=== PATIENT | male | born 2000 | race Caucasian/White ===

== ENCOUNTER 2020-07-10 12:49 | Emergency (ER) | payer BC, SELFPAY ==
[2020-07-10 13:10] VITALS: BP 138/86; PULSE 86; RESP 19; TEMP 36.8; O2SAT 98; BMI 36.7
[2020-07-10 13:27] VITALS: BP 138/86; PULSE 86; RESP 19; TEMP 36.8; O2SAT 98
--- NOTE | 2020-07-10 13:41 | HMH.EDUTC ---
[facility] Disposition Clinical Impression: Exposure to COVID-19 virus Disposition: Home, Self-Care Condition on Discharge: Good Instructions: Preventing the Spread of Coronavirus Discharge Instructions Additional Instructions: Drink plenty of fluids. Take tylenol for pain or fever. Return if you begin to have difficulty breathing. Follow up with your regular doctor. GO TO THE ER FOR ANY WORSENING SYMPTOMS Prescriptions: Ondansetron [Zofran 4mg ODT] 4 mg PO Q8HP PRN #20 tab.rapdis PRN Reason: Nausea Transmission Status: Received by [facility] Azithromycin [Z-Tong 250mg Tab*] 250 mg PO UD DOSE PK #6 tab Transmission Status: Received by [facility] Referrals: Desiree Haley MD [Primary Care Provider] - Time of Disposition: 13:55 Medical Decision Making - Medical Records Medical records reviewed: No: I reviewed the patient's medical records. - Enrique Inquiry Pt receiving controlled substance: No Vital Signs: 07/10/20 13:10 07/10/20 13:27 Temperature 98.3 F 98.3 F Temperature Source Oral Pulse Rate 86 Pulse Rate [Right Brachial] 86 Respiratory Rate 19 19 Blood Pressure 138/86 Blood Pressure [Right Arm] 138/86 Blood Pressure Mean [Right Arm] 103 Blood Pressure Source [Right Arm] Automatic Cuff Blood Pressure Position [Right Arm] Sitting 02 Sat by Pulse Oximetry 98 Oxygen Delivery Method Room Air Orders (Tests/Meds): ORDERS Category Date Time Status Covid-19 Nasal PCR ([facility]) Routine Lab 07/10/20 13:13 Received [facility] HPI - General Stated complaint: COVID EXPOSURE Time Seen by Provider: 07/10/20 13:42 Mode of Arrival: Ambulatory Source of Information: Patient Limitations: No Limitations Description of Symptoms (Recalled from Triage Doc. by RN): REQUESTING COVID TEST D/T EXPOSURE; DENIES SYMPTOMS HEENT Symptoms (Recalled from RN notes): No Resp Symptoms (Recalled from RN notes): No Skin Symptoms (Recalled from RN notes): No MS Symptoms (Recalled from RN notes): No Functional Status (Recalled from RN notes): WNL - History of Present Illness Provider Complaint: He states that he has been exposed to covid at home. He denies any symptoms so far. - Related Data Previous Rx's Medication Instructions Recorded Azithromycin [Z-Tong 250mg Tab*] 250 mg PO UD DOSE PK #6 tab 07/10/20 Ondansetron [Zofran 4mg ODT] 4 mg PO Q8HP PRN #20 tab.rapdis 07/10/20 Allergies Allergy/AdvReac Type Severity Reaction Status Date / Time No Known Allergies Allergy Verified 07/10/20 13:23 - Worker's Comp Is this a Worker's Comp case?: No [facility] History - Hepatitis A Screen Drug use history?: No High risk sexual behaviors?: No History of sexually transmitted infection?: No Currently employed?: No Childcare worker?: No Do you have indoor plumbing?: Yes Do you have electricity?: Yes Attestation statement:: This patient has been screened for Hepatitis A risk factors. I have reviewed the patient's past medical history: Yes Other Surgeries: Yes: No Previous Surgery - Social History Smoking Status: Never smoker Alcohol Intake: never Substance Use Type: denies use Occupational Status: other Family Hx:: Non-contributory ROS Obtained: Yes All systems reviewed & no additional complaints - Constitutional Constitutional: Reports system reviewed and no additional complaints, except as docu - Eyes Eyes: Reports system reviewed and no additional complaints, except as docu - ENT Ears, Nose, Mouth, and Throat: Reports system reviewed and no additional complaints, except as docu - Cardiovascular Cardiovascular: Reports system reviewed and no additional complaints, except as docu - Respiratory Respiratory: Reports system reviewed and no additional complaints, except as docu - Gastrointestinal Gastrointestingal: Reports: system reviewed and no additional complaints, except as docu Physical Exam - General General appearance: alert, in no apparent distre
--- NOTE | 2020-07-10 19:58 | PC.NURSE ---
ATTEMPTED TO CALL PT AND GOT NO ANSWER, LEFT VOICEMAIL WITH CALL BACK NUMBER
--- NOTE | 2020-07-10 20:25 | PC.NURSE ---
PT NOTIFIED OF POSITIVE COVID RESULT
== END 2020-07-10 14:04 | disposition home or self-care (01) ==
PROVIDERS: Emergency Provider Nurse Practitioner Family; PCP Family Medicine
DX: U07.1 COVID-19 (principal)
CPT/HCPCS: 99202; G0463; U0003

== ENCOUNTER 2020-07-21 10:05 | Emergency (ER) | payer BC, SELFPAY ==
[2020-07-21 10:20] VITALS: BP 131/98; PULSE 63; RESP 19; TEMP 37; O2SAT 98; BMI 26.4
--- NOTE | 2020-07-21 10:43 | HMH.EDUTC ---
[facility] [place] Disposition Clinical Impression: Encounter for laboratory testing for COVID-19 virus Disposition: Home, Self-Care Condition on Discharge: Good Instructions: DI for COVID-19 (Suspected or Confirmed ), Coronavirus Disease 2019, Preventing the Spread of Coronavirus Discharge Instructions Additional Instructions: *Monitor Temp, Over the counter Motrin or Tylenol as directed/as needed Tylenol every 4 hours and Motrin every 6 hours (as long as your family doctor has told you that you can take it) for fever or pain. and straight to ER if unable to lower temp less than 101.0 after medication given Follow up IMMEDIATELY for new or worsening symptoms or no Noticeable improvement over the next 48-72 hours. 911 for difficulty breathing or swallowing You were tested for today for COVID19 your test result should be back in the next 24-48 hours, you may call to the [facility] to see if your test results are back in the next 48 hours [phone] [facility] hours are 9am-9pm You was given a handout with instructions for Self Quarantine and Self isolation for while you wait on test results and what to do if they are positive If you are positive the Health Dept will be contacting you also Referrals: Desiree Haley MD [Primary Care Provider] - As needed Forms: Work/School Release Time of Disposition: 10:44 Medical Decision Making - Enrique Inquiry Pt receiving controlled substance: No Enrique was queried for this patient: No Vital Signs: 07/21/20 10:20 Temperature 98.6 F Temperature Source Oral Pulse Rate [Right Brachial] 63 Respiratory Rate 19 Blood Pressure [Right Arm] 131/98 H Blood Pressure Mean [Right Arm] 109 Blood Pressure Source [Right Arm] Automatic Cuff Blood Pressure Position [Right Arm] Sitting 02 Sat by Pulse Oximetry 98 Oxygen Delivery Method Room Air Orders (Tests/Meds): ORDERS Category Date Time Status Covid-19 Nasal PCR Sendout [facility] Stat Lab 07/21/20 10:[address] [facility] HPI - General Stated complaint: covid test Time Seen by Provider: 07/21/20 10:43 Mode of Arrival: Ambulatory Source of Information: Patient Limitations: No Limitations Description of Symptoms (Recalled from Triage Doc. by RN): PATIENT TEST POSITIVE FOR COVID 2 WEEKS AGO, WANTING RE-TESTED HEENT Symptoms (Recalled from RN notes): No Resp Symptoms (Recalled from RN notes): No Skin Symptoms (Recalled from RN notes): No MS Symptoms (Recalled from RN notes): No Functional Status (Recalled from RN notes): WNL - History of Present Illness Provider Complaint: Patient tested positiver for COVID about 2 weeks ago and lives with his mother States that her work wanted him to get retested to see if he is still positive before she is allowed to return to work - Related Data Previous Rx's Medication Instructions Recorded Azithromycin [Z-Tong 250mg Tab*] 250 mg PO UD DOSE PK #6 tab 07/10/20 Ondansetron [Zofran 4mg ODT] 4 mg PO Q8HP PRN #20 tab.rapdis 07/10/20 Allergies Allergy/AdvReac Type Severity Reaction Status Date / Time No Known Allergies Allergy Verified 07/10/20 13:23 - Worker's Comp Is this a Worker's Comp case?: No [facility] History - Hepatitis A Screen Drug use history?: No High risk sexual behaviors?: No History of sexually transmitted infection?: No Currently employed?: No Childcare worker?: No Do you have indoor plumbing?: Yes Do you have electricity?: Yes Attestation statement:: This patient has been screened for Hepatitis A risk factors. I have reviewed the patient's past medical history: Yes Other Surgeries: Yes: No Previous Surgery - Social History Smoking Status: Never smoker Alcohol Intake: never Substance Use Type: denies use Occupational Status: other Family Hx:: Non-contributory ROS Obtained: Yes All systems reviewed & no additional complaints, Yes Systems reviewed as appropriate & no additional complaints - Constitutional Constitutional: Reports system reviewed and no additional complaints, except
[2020-07-21 11:00] VITALS: BP 131/98; PULSE 63; RESP 19; TEMP 37; O2SAT 98
[2020-07-22 10:08] LABS: Covid-19 Nasal PCR Sendout P&C POSITIVE
--- NOTE | 2020-07-22 11:05 | PC.NURSE ---
attempted to contact for positive covid result voicemail left
--- NOTE | 2020-07-22 11:28 | PC.NURSE ---
notified of positive covid result
== END 2020-07-21 11:05 | disposition home or self-care (01) ==
PROVIDERS: Emergency Provider Nurse Practitioner; PCP Family Medicine
DX: U07.1 COVID-19 (principal)
CPT/HCPCS: 99202; G0463; U0004

== ENCOUNTER 2021-06-14 06:47 | Emergency (ER) | payer OTHER, SELFPAY ==
[2021-06-14 06:49] VITALS: BP 120/65; PULSE 80; RESP 16; TEMP 36.9; O2SAT 98; BMI 26.3
--- NOTE | 2021-06-14 07:07 | ECG_ITS ---
APPROVED REPORT Exam: Resting ECG HR:76 bpm ECG Measurements Heart Rate 76 AXES SC 172 P 43 QRSd 72 QRS 43 QT 364 T 56 QTc 409 Conclusion Normal sinus rhythm Nonspecific ST abnormality Abnormal ECG Electronically signed by : Jemal Vargas MD 06/14/2021 20:17:04
[2021-06-14 07:40] VITALS: BP 122/74; PULSE 80; RESP 16; O2SAT 98
--- NOTE | 2021-06-14 07:50 | HMH.EDGENADL ---
ED Disposition Clinical Impression: Acute epigastric pain Disposition: Home, Self-Care Condition on Discharge: Good Instructions: DI for Acute Pain -- Adult Additional Instructions: see pcp for follow up and use meds Prescriptions: Pantoprazole Sodium [Protonix 40mg tablet] 40 mg PO DAILY #30 tab Transmission Status: Pending to [facility] Referrals: Desiree Haley MD [Primary Care Provider] - - Critical Care Critical Care Time: No Attestation: On 06/14/21, the high probability of a clinically significant, sudden or life threatening deterioration of the following system(s) required my full and direct attention, intervention and personal management. The time I documented below is in addition to time spent performing reported procedures but includes the following listed in this critical care notation. Medical Decision Making - Medical Records Medical records reviewed: Yes: I reviewed the patient's medical records. - Enrique Inquiry Pt receiving controlled substance: No Vital Signs: 06/14/21 06:49 Temperature 98.5 F Temperature Source Oral Pulse Rate [Radial] 80 Respiratory Rate 16 Blood Pressure [Right Arm] 120/65 Blood Pressure Mean [Right Arm] 83 Blood Pressure Position [Right Arm] Sitting 02 Sat by Pulse Oximetry 98 Oxygen Delivery Method Room Air - Lab Data Lab results reviewed: Yes: I reviewed the patient's lab results. Lab Results 06/14/21 07:54: WBC 7.6, RBC 4.74, Hgb 14.6, Hct 44.9, MCV 94.7 H, MCH 30.8, MCHC 32.5, RDW 13.7, Plt Count 196, MPV 9.3, Neut % (Auto) 65.5, Lymph % (Auto) 27.6, [place] % (Auto) 4.0, Eos % (Auto) 2.5, Baso % (Auto) 0.5, Neut # (Auto) 5.0, Lymph # (Auto) 2.1, [place] # (Auto) 0.3, Eos # (Auto) 0.2, Baso # (Auto) 0.0 06/14/21 07:54: Sodium 140, Potassium 4.0, Chloride 105, Carbon Dioxide 28, Anion Gap 11.0, BUN 7 L, Creatinine 0.60 L, Estimated Creat Clear 252, Estimated GFR 167, Est GFR ( Amer) 202, Glucose 87, Calcium 9.0, Total Bilirubin 1.2, AST 28, ALT 27, Alkaline Phosphatase 57, Total Protein 6.7, Albumin 4.1, Globulin 2.6, Albumin/Globulin Ratio 1.6, Amylase 68, Lipase 52 Result diagrams: 06/14/21 07:54 06/14/21 07:54 Orders (Tests/Meds): ED MEDICATIONS Generic Name Dose Route Start Last Admin Trade Name Freq PRN Reason Stop Dose Admin Sodium Chloride 1,000 mls @ 999 mls/hr 06/14/21 07:45 06/14/21 07:58 Sod Chlor 0.9% 1000ml Bag IV 06/14/21 08:45 999 mls/hr .Q1H1M JASON Administration Sodium Chloride 8 ml 06/14/21 07:40 06/14/21 07:58 Sodium Chloride 0.9% 10ml Vial IV 07/14/21 07:39 8 ml NEEDED PRN Administration dilute pepcid Discontinued Medications Generic Name Dose Route Start Last Admin Trade Name Freq PRN Reason Stop Dose Admin Belladonna Alkaloids 60 ml 06/14/21 07:36 06/14/21 07:41 Gi Cocktail 60ml Udc PO 06/14/21 07:37 Not Given ONCE ONE Famotidine 20 mg 06/14/21 07:40 06/14/21 07:58 Famotidine 20mg/2ml Vial IV 06/14/21 07:41 20 mg ONCE ONE Administration Metoclopramide HCl 10 mg 06/14/21 07:40 06/14/21 07:58 Metoclopramide Hcl 10mg/2ml Vial IVP 06/14/21 07:41 10 mg ONCE ONE Administration ORDERS Category Date Time Status Amylase Stat Lab 06/14/21 07:54 Results Comprehensive Metabolic Panel Stat Lab 06/14/21 07:54 Results Lipase Stat Lab 06/14/21 07:54 Results Troponin I Q3H Lab 06/14/21 10:45 Ordered Troponin I Q3H Lab 06/14/21 13:45 Ordered Troponin I Stat Lab 06/14/21 07:54 Results Urinalysis and Microscopic Stat Lab 06/14/21 07:38 Ordered - ECG Data Tracing #1 Normal Sinus Rhythm: Yes Ischemic changes: non-specific ST-T wave changes Medical Decision Narrative: has gerd type sx vs gallbladder - will d/c to see pcp for follow up and testing General Adult HPI - General Chief complaint: PAIN Stated complaint: Took double dose Benadryl;pain in upper abdomen Time Seen by Provider: 06/14/21 07:25 Mode of Arrival: Ambulat
[2021-06-14 08:03] LABS: Basophils % 0.5 % (0.1-2.0); Eosinophils # 0.2 K/mm3 (0.0-0.4); Eosinophils % 2.5 % (0.1-12.0); Hematocrit 44.9 % (42.0-52.0); Hemoglobin 14.6 g/dL (14.1-18.0); Lymphocytes # 2.1 K/mm3 (0.7-4.5); Lymphocytes % 27.6 % (10-50); Mean Corpuscular HGB Conc 32.5 g/dL (31.8-35.4); Mean Corpuscular Hemoglobin 30.8 pg (27.0-31.2); Mean Corpuscular Volume 94.7 fl (80-94); Mean Platelet Volume 9.3 fl (7.4-10.4); Monocytes # 0.3 K/mm3 (0.1-1.0); Neutrophils % 65.5 % (37.0-80.0); Platelet Count 196 K/mm3 (142-424); Red Blood Count 4.74 M/mm3 (4.60-6.20); Red Cell Distribution Width 13.7 % (11.5-17.5); White Blood Count 7.6 K/mm3 (4.8-10.8)
[2021-06-14 08:06] LABS: Chloride 105 mmol/L (98-107); Sodium 140 mmol/L (136-145)
[2021-06-14 08:08] LABS: Amylase 68 U/L (30-110)
[2021-06-14 08:09] LABS: Alanine Aminotransferase 27 U/L (12-78); Albumin Level 4.1 g/dl (3.5-5.0); Albumin/Globulin Ratio 1.6 (1.1-1.8); Alkaline Phosphatase 57 U/L (38-126); Aspartate Amino Transferase 28 U/L (17-59); Bilirubin,Total 1.2 mg/dl (0.2-1.3); Blood Urea Nitrogen 7 mg/dl (9-20); Carbon Dioxide 28 mmol/L (22.0-30.0); Creatinine Clearance Estimated 252 mL/min (50-200); Estimated Glomerular Filt Rate 167 ml/min (>60); GFR (African American) 202 ML/MIN (>60); Globulin 2.6 g/dL (1.3-3.2); Glucose 87 mg/dl (74-100); Lipase 52 U/L (23-300); Total Protein,Serum 6.7 g/dl (6.3-8.2)
[2021-06-14 08:26] LABS: Troponin I < 0.01 ng/ml (0.00-0.034)
[2021-06-14 08:32] LABS: Microscopic, Urine URINE MICROSCOPIC (MICROSCOPIC)
[2021-06-14 08:35] LABS: Appearance,Urine CLEAR (Clear); Bilirubin,Urine Negative (Negative); Blood, Urine Negative (Negative); Color,Urine YELLOW (Yellow); Glucose,Urine (UA) Negative (Negative); Ketones,Urine Negative (Negative); Leukocyte Esterase,Urine Negative (Negative); Nitrate,Urine Negative (Negative); Protein,Urine Negative (Negative); Specific Gravity, Urine <= 1.005 (1.005-1.030); Urobilinogen,Urine 0.2 EU/dl (0.2)
[2021-06-14 08:44] VITALS: BP 122/74; PULSE 80; RESP 98; TEMP 36.9
[2021-06-14 08:47] LABS: Squamous Epithelial Cell,Urine Occasional #/hpf (0-5)
== END 2021-06-14 08:45 | disposition home or self-care (01) ==
PROVIDERS: Emergency Provider Emergency Medicine; PCP Family Medicine
DX: R10.13 Epigastric pain (principal); R11.0 Nausea
CPT/HCPCS: 80053; 81001; 82150; 83690; 84484; 85025; 93005; 96365; 96375; 99283

== ENCOUNTER 2021-08-11 16:52 | Emergency (ER) | payer OTHER, SELFPAY ==
[2021-08-11 16:53] VITALS: BP 131/79; PULSE 95; RESP 16; TEMP 37.2; O2SAT 98; BMI 27.6
--- NOTE | 2021-08-11 17:40 | HMH.EDGENADL ---
ED Disposition Clinical Impression: Head pain Qualifiers: Headache type: unspecified Headache chronicity pattern: acute headache Intractability: not intractable Qualified Code(s): R51.9 - Headache, unspecified Disposition: Home, Self-Care Condition on Discharge: Good Instructions: DI for Headache Additional Instructions: follow up pcp, return for worse Referrals: Desiree Haley MD [Primary Care Provider] - - Critical Care Critical Care Time: No Attestation: On , the high probability of a clinically significant, sudden or life threatening deterioration of the following system(s) required my full and direct attention, intervention and personal management. The time I documented below is in addition to time spent performing reported procedures but includes the following listed in this critical care notation. Medical Decision Making - Medical Records Medical records reviewed: Yes: I reviewed the patient's medical records. - Enrique Inquiry Pt receiving controlled substance: No Vital Signs: 08/11/21 16:53 Temperature 98.9 F Temperature Source Oral Pulse Rate [Radial] 95 H Respiratory Rate 16 Blood Pressure [Right Arm] 131/79 Blood Pressure Mean [Right Arm] 96 Blood Pressure Position [Right Arm] Sitting 02 Sat by Pulse Oximetry 98 Oxygen Delivery Method Room Air General Adult HPI - General Chief complaint: Headache Stated complaint: sudden headache, pain in center of head Time Seen by Provider: 08/11/21 17:40 Mode of Arrival: Ambulatory Limitations: No Limitations Description of Symptoms (Recalled from ER Triage Doc. 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 pt states he had a sudden onset of pain top of head lasting only a few secs then would resolve and come back seconds later states this happened maybe 5 times pt denies any fever, chills, nausea, vomiting, photophobia, phonophobia. pt states looked up symptoms on the internet and it scared me . - History of Present Illness HPI narrative: sudden onset sharp scalp/head pain several hours ago lasting brief seconds, resolved now, no assoc symptoms, no meds taken Location: head Radiation: non-radiation Severity: moderate Quality: sharp Consistency: now resolved Relieving factors: none Exacerbating factors: none Associated symptoms: denies other symptoms - Related Data Previous Rx's Medication Instructions Recorded Azithromycin [Z-Tong 250mg Tab*] 250 mg PO UD DOSE PK #6 tab 07/10/20 Pantoprazole Sodium [Protonix 40mg 40 mg PO DAILY #30 tab 06/14/21 tablet] Allergies Allergy/AdvReac Type Severity Reaction Status Date / Time No Known Allergies Allergy Verified 07/10/20 13:23 [facility] History - Hepatitis A Screen Drug use history?: No High risk sexual behaviors?: No History of sexually transmitted infection?: No Currently employed?: No Childcare worker?: No Do you have indoor plumbing?: Yes Do you have electricity?: Yes Attestation statement:: This patient has been screened for Hepatitis A risk factors. Other Surgeries: Yes: No Previous Surgery - Social History Smoking Status: Never smoker Alcohol Intake: never Substance Use Type: denies use Occupational Status: other Family Hx:: Non-contributory ROS Obtained: Yes All systems reviewed & no additional complaints Physical Exam - General General appearance: alert, in no apparent distress - Head Head exam: atraumatic, normocephalic, normal inspection - Eye Eye exam: Present: normal appearance, PERRL, EOMI - ENT ENT exam: Present: TM's normal bilaterally - Respiratory Respiratory exam: Absent: respiratory distress, wheezes, stridor - Cardiovascular Cardiovascular exam: Present: regular rate, normal rhythm. Absent: tachycardia - Neurological Exam Neurological exam: Present: alert, oriented X3, CN II-XII intact, normal gait - Psychiatric Psychiatric exam: Present: normal affect, normal mood. Absent: depressed - Skin Skin
[2021-08-11 18:04] VITALS: BP 131/79; PULSE 95; RESP 16; TEMP 37.2; O2SAT 98
== END 2021-08-11 18:04 | disposition home or self-care (01) ==
PROVIDERS: Emergency Provider Emergency Medicine; PCP Family Medicine
DX: R51.9 Headache, unspecified (principal); Z86.16 Personal history of COVID-19
CPT/HCPCS: 99281

== ENCOUNTER 2021-09-15 00:07 | Emergency (ER) | payer OTHER, SELFPAY ==
[2021-09-15] VITALS (9 sets, daily range): BP systolic 106–126; BP diastolic 65–77; PULSE 56–75; RESP 16–18; TEMP 36.6–37.1; O2SAT 98–100; BMI 27.7
--- NOTE | 2021-09-15 00:06 | ECG_ITS ---
APPROVED REPORT Exam: Resting ECG HR:66 bpm ECG Measurements Heart Rate 66 AXES MD 193 P 48 QRSd 84 QRS 70 QT 363 T 61 QTc 376 Conclusion SINUS RHYTHM EARLY REPOLARIZATION [ST ELEVATION WITH NORMALLY INFLECTED T-WAVE] BORDERLINE ECG UNCONFIRMED REPORT Electronically signed by : Jemal Vargas MD 09/15/2021 18:02:43
--- NOTE | 2021-09-15 00:12 | XR_ITS ---
PROCEDURE INFORMATION: Exam: XR Chest Exam date and time: 09/15/2021 12:12 AM Age: 21 years old Clinical indication: Injury or trauma; Fall; Blunt trauma (contusions or hematomas); Additional info: Syncope TECHNIQUE: Imaging protocol: XR of the chest. Views: 2 views. COMPARISON: No relevant prior studies available. FINDINGS: Lungs: Unremarkable. No consolidation. Pleural spaces: Unremarkable. No pleural effusion. No pneumothorax. Heart/Mediastinum: Unremarkable. No cardiomegaly. Bones/joints: Unremarkable. IMPRESSION: No acute findings.
[2021-09-15 00:20] LABS: Basophils # 0.3 K/mm3 (0-0.2); Basophils % 4.2 % (0.1-2.0); Eosinophils # 0.1 K/mm3 (0.0-0.4); Eosinophils % 1.7 % (0.1-12.0); Hemoglobin 15.8 g/dL (14.1-18.0); Lymphocytes # 4.1 K/mm3 (0.7-4.5); Lymphocytes % 56.7 % (10-50); Mean Corpuscular HGB Conc 32.3 g/dL (31.8-35.4); Mean Corpuscular Hemoglobin 30.8 pg (27.0-31.2); Mean Corpuscular Volume 95.5 fl (80-94); Mean Platelet Volume 9.2 fl (7.4-10.4); Monocytes # 0.4 K/mm3 (0.1-1.0); Monocytes % 5.2 % (1.7-9.3); Neutrophils # 2.6 K/mm3 (1.8-7.8); Neutrophils % 36.4 % (37.0-80.0); Platelet Count 235 K/mm3 (142-424); Red Blood Count 5.14 M/mm3 (4.60-6.20); White Blood Count 7.2 K/mm3 (4.8-10.8)
[2021-09-15 00:29] LABS: MANUAL DIFFERENTIAL MANUAL DIFFERENTIAL (MANUAL DIFF)
--- NOTE | 2021-09-15 00:41 | HMH.EDCP ---
ED Disposition Clinical Impression: Chest pain Qualifiers: Chest pain type: unspecified Qualified Code(s): R07.9 - Chest pain, unspecified Disposition: Home, Self-Care Condition on Discharge: Good Instructions: DI for Atypical Chest Pain Additional Instructions: fluids and see pcp for follow up Referrals: Desiree Haley MD [Primary Care Provider] - - Critical Care Critical Care Time: No Attestation: On 09/15/21, the high probability of a clinically significant, sudden or life threatening deterioration of the following system(s) required my full and direct attention, intervention and personal management. The time I documented below is in addition to time spent performing reported procedures but includes the following listed in this critical care notation. Medical Decision Making - Medical Records Medical records reviewed: Yes: I reviewed the patient's medical records. - Enrique Inquiry Pt receiving controlled substance: No Vital Signs: 09/15/21 00:08 09/15/21 00:13 09/15/21 00:14 Temperature 97.8 F Temperature Source Oral Pulse Rate 69 62 Pulse Rate [Orthostatic Lying] Pulse Rate [Orthostatic Sitting] Pulse Rate [Orthostatic Standing] Pulse Rate [Right] 68 Respiratory Rate 18 Blood Pressure 121/77 126/73 Blood Pressure [Orthostatic Lying] Blood Pressure [Orthostatic Sitting] Blood Pressure [Orthostatic Standing] Blood Pressure [Right Arm] 106/65 L Blood Pressure Mean 88 84 Blood Pressure Mean [Right Arm] 78 02 Sat by Pulse Oximetry 98 98 98 09/15/21 00:15 09/15/21 00:19 09/15/21 00:30 Temperature Temperature Source Pulse Rate 61 71 Pulse Rate [Orthostatic Lying] 66 Pulse Rate [Orthostatic Sitting] 60 Pulse Rate [Orthostatic Standing] 71 Pulse Rate [Right] Respiratory Rate Blood Pressure 118/71 125/77 Blood Pressure [Orthostatic Lying] 121/77 Blood Pressure [Orthostatic Sitting] 126/73 Blood Pressure [Orthostatic Standing] 118/71 Blood Pressure [Right Arm] Blood Pressure Mean 83 85 Blood Pressure Mean [Right Arm] 02 Sat by Pulse Oximetry 99 99 09/15/21 01:30 09/15/21 02:00 Temperature Temperature Source Pulse Rate 56 L 75 Pulse Rate [Orthostatic Lying] Pulse Rate [Orthostatic Sitting] Pulse Rate [Orthostatic Standing] Pulse Rate [Right] Respiratory Rate Blood Pressure 118/67 117/75 Blood Pressure [Orthostatic Lying] Blood Pressure [Orthostatic Sitting] Blood Pressure [Orthostatic Standing] Blood Pressure [Right Arm] Blood Pressure Mean 75 85 Blood Pressure Mean [Right Arm] 02 Sat by Pulse Oximetry 99 98 - Lab Data Lab results reviewed: Yes: I reviewed the patient's lab results. Lab Results 09/15/21 00:10: WBC 7.2, RBC 5.14, Hgb 15.8, Hct 49.0, MCV 95.5 H, MCH 30.8, MCHC 32.3, RDW 13.0, Plt Count 235, MPV 9.2, Neut % (Auto) 36.4 L, Lymph % (Auto) 56.7 H, [place] % (Auto) 5.2, Eos % (Auto) 1.7, Baso % (Auto) 4.2 H, Neut # (Auto) 2.6, Lymph # (Auto) 4.1, [place] # (Auto) 0.4, Eos # (Auto) 0.1, Baso # (Auto) 0.3 H, Total Counted 100, Neutrophils % (Manual) 27 L, Lymphocytes % (Manual) 68 H, Monocytes % (Manual) 1 L, Eosinophils % (Manual) 4 H, Platelet Estimate Normal, RBC Morphology Normal, ESR 2 09/15/21 00:10: Sodium 138, Potassium 3.7, Chloride 104, Carbon Dioxide 26, Anion Gap 11.7, BUN 12, Creatinine 0.70, Estimated Creat Clear 227, Estimated GFR 140, Est GFR ( Amer) 169, Glucose 123 H, Calcium 8.3 L, Total Bilirubin 1.4 H, AST 35, ALT 42, Alkaline Phosphatase 58, Troponin I < 0.01, C-Reactive Protein 3.9, Total Protein 7.1, Albumin 4.4, Globulin 2.7, Albumin/Globulin Ratio 1.6, Procalcitonin < 0.030 09/15/21 02:19: Urine Color Yellow, Urine Appearance Clear, Urine pH 6.0, Ur Specific Simpson 1.010, Urine Protein Negative, Urine Glucose (UA) Negative, Urine Ketones Negative, Urine Blood Negative, Urine Nitrate Negative, Urine Bilirubin Negative, Urine Urobilinogen 0.2, Ur Leukocyte Esterase Negativ
--- NOTE | 2021-09-15 00:42 | CT_ITS ---
PROCEDURE INFORMATION: Exam: CTA Chest With Contrast Exam date and time: 09/15/2021 12:42 AM Age: 21 years old Clinical indication: Injury or trauma; Fall; Additional info: Chest pain, syncopal episode TECHNIQUE: Imaging protocol: Computed tomographic angiography of the chest with contrast. 3D rendering (Not supervised by radiologist): MIP and/or 3D reconstructed images were created by the technologist. Radiation optimization: All CT scans at this facility use at least one of these dose optimization techniques: automated exposure control; mA and/or kV adjustment per patient size (includes targeted exams where dose is matched to clinical indication); or iterative reconstruction. Contrast material: ISOVUE; Contrast volume: 70 ml; Contrast route: INTRAVENOUS (IV); COMPARISON: CR XR CHEST 2V 09/15/2021 12:17 AM FINDINGS: Pulmonary arteries: Normal. No pulmonary emboli. Aorta: Unremarkable. No aortic aneurysm. No aortic dissection. Lungs: Unremarkable. No consolidation. No masses. Pleural spaces: Unremarkable. No pneumothorax. No pleural effusion. Heart: Unremarkable. No cardiomegaly. No pericardial effusion. Lymph nodes: Unremarkable. No enlarged lymph nodes. Bones/joints: Unremarkable. No acute fracture. Soft tissues: Unremarkable. IMPRESSION: No acute findings.
[2021-09-15 01:02] LABS: Erythrocyte Sedimentation Rate 2 mm/hr (0-15)
[2021-09-15 01:03] LABS: Chloride 104 mmol/L (98-107)
[2021-09-15 01:04] LABS: Potassium 3.7 mmoL/L (3.5-5.1); Sodium 138 mmol/L (136-145)
[2021-09-15 01:06] LABS: Alanine Aminotransferase 42 U/L (12-78); Alkaline Phosphatase 58 U/L (38-126); Aspartate Amino Transferase 35 U/L (17-59); Bilirubin,Total 1.4 mg/dl (0.2-1.3); Blood Urea Nitrogen 12 mg/dl (9-20); Creatinine Clearance Estimated 227 mL/min (50-200); Estimated Glomerular Filt Rate 140 ml/min (>60); GFR (African American) 169 ML/MIN (>60)
[2021-09-15 01:07] LABS: Albumin Level 4.4 g/dl (3.5-5.0); Albumin/Globulin Ratio 1.6 (1.1-1.8); Anion Gap 11.7 mEq/L (5-15); Calcium 8.3 mg/dl (8.4-10.2); Carbon Dioxide 26 mmol/L (22.0-30.0); Globulin 2.7 g/dL (1.3-3.2); Glucose 123 mg/dl (74-100); Total Protein,Serum 7.1 g/dl (6.3-8.2)
[2021-09-15 01:14] LABS: Eosinophils % 4 % (0-3); Lymphocytes % 68 % (10-50); Monocytes % 1 % (2-9); Neutrophils % 27 % (42-76); Platelet Estimate Normal; RBC Morphology Normal; Total Cells Counted 100
[2021-09-15 01:52] LABS: C-Reactive Protein 3.9 mg/L (0-4)
[2021-09-15 02:07] LABS: Procalcitonin < 0.030 ng/mL (0.0-2.0); Troponin I < 0.01 ng/ml (0.00-0.034)
--- NOTE | 2021-09-15 02:21 | PC.NURSE ---
PT DENIES PAIN/DISCOMFORT. PT UPDATED WITH EXPECTED WAIT TIMES. WCM.
[2021-09-15 02:23] LABS: Appearance,Urine CLEAR (Clear); Bilirubin,Urine Negative (Negative); Blood, Urine Negative (Negative); Color,Urine YELLOW (Yellow); Glucose,Urine (UA) Negative (Negative); Ketones,Urine Negative (Negative); Leukocyte Esterase,Urine Negative (Negative); Microscopic, Urine URINE MICROSCOPIC (MICROSCOPIC); Nitrate,Urine Negative (Negative); Protein,Urine Negative (Negative); Urobilinogen,Urine 0.2 EU/dl (0.2)
[2021-09-15 02:36] LABS: Bacteria,Urine Trace /lpf; Barbiturates Screen,Urine Negative ng/ml (<200)
[2021-09-15 02:37] LABS: Amphetamine/Metha Screen,Urine Negative ng/ml (<1000)
[2021-09-15 02:38] LABS: Cocaine Screen,Urine Negative ng/ml (<300); Methadone Screen,Urine Negative ng/ml (<300)
[2021-09-15 02:39] LABS: Cannabinoid Screen,Urine Negative ng/ml (<50)
[2021-09-15 02:40] LABS: Opiate Screen,Urine Negative ng/ml (<300)
[2021-09-15 02:41] LABS: Phencyclidine Screen,Urine Negative ng/ml (<25)
[2021-09-15 02:56] LABS: Benzodiazepines Screen,Urine Negative ng/ml (<200)
== END 2021-09-15 03:09 | disposition home or self-care (01) ==
PROVIDERS: Emergency Provider Emergency Medicine; PCP Family Medicine
DX: R55 Syncope and collapse (principal); R07.9 Chest pain, unspecified
CPT/HCPCS: 71046; 71275; 80053; 80305; 81001; 84145; 84484; 85007; 85025; 85651; 86140; 93005; 96365; 96375; 99284; Q9967

== ENCOUNTER → 2021-09-24 10:42 | Outpatient (CLI) | payer OTHER, SELFPAY ==
--- NOTE | 2021-09-24 10:44 | CA_ITS ---
APPROVED REPORT EXAM: Comprehensive 2D, Doppler, and color-flow Echocardiogram Promotions Assistant Sales Marketing: Flores Becker RT(R) Ht: 6 ft 2 in Wt: 212lbs BSA: 2.23 BP: 126/79 mmHg Indications: cp, syncope 2D Dimensions LVOT 2.21 cm (M/F) 1.5-2.5 LA Volume 25.90 mL LA Volume Index 11.66 mL/m2 (M/F) 16-34 M-Mode Dimensions RVDd 2.61 cm (0.9-2.6) LA Diam 3.32 cm (1.9-4.0) LVDd 5.56 cm (3.5-5.7) Ao Diam 2.55 cm (2.0-3.7) LVDs 4.42 cm (3.5-5.7) IVSd 1.06 cm (0.6-1.1) PWd 0.83 cm (0.6-1.1) EF (Teich) 41.40% FS 20.50% EDV (Teich) 151.20 mL ESV (Teich) 88.60 mL LV Diastology E Decel Time 200.00 (160-240 msec) E/A Ratio 1.2 MED E' 11.80 (< 7 cm/sec) E'/MED E' Ratio 6.08 (>14) LAT E' 19.20 (<10 cm/sec) E/LAT E' Ratio 3.73 (>14) Mitral Valve MV E Max Ray. 72.00 (40-130 cm/s) MV A Velocity 58.00 (40-130 cm/s) E/A Ratio 1.23 MV Decel. Time 200.00 (160-240 ms) MV PHT 59.00 ms Tricuspid Valve TR P. Velocity 229.00 cm/s RAP Estimate 10.00 mmHg RVSP 31.00 mmHg Left Ventricle Left atrium normal size, left ventricle is normal size, there is no concentric left ventricular hypertrophy, visually estimated ejection fraction 55% with no regional wall motion abnormality, diastolic parameters are within normal range. Right Ventricle Right atrium and right ventricle are normal size and contractility. Aortic Valve Aortic valve is grossly normal, there is no aortic stenosis or aortic insufficiency. Mitral Valve Mitral valve grossly normal, there is trace mitral regurgitation. Tricuspid Valve Tricuspid valve grossly normal, there is no significant tricuspid regurgitation seen. Pulmonic Valve Pulmonic valve is poorly visualized. Great Vessels Aortic root is normal size. Inferior vena cava is normal size, respiratory variation is not observed in this study. Pericardium No significant pericardial effusion noted. Conclusion 1. Normal left ventricular size, preserved left ventricular systolic function, visually estimated ejection fraction 55% with no regional wall motion abnormality. 2. Trace mitral regurgitation. 3. No significant pericardial effusion noted. Electronically signed by : Skip Patton MD 09/24/2021 16:06:17
--- NOTE | 2021-09-24 10:44 | CA_ITS ---
APPROVED REPORT Exam: Exercise Treadmill Technologist: Nidia Brown, Ht: 6 ft 0 in Wt: 212 lbs BSA: 2.18 m2 HR: 82 bpm BP: 132/75 mmHg Rhythm: NSR, J-POINT ELEVATION INFERIORLY 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 Medications: DiPHENHYDRAMINE,,,,, Allergies: No known drug allergies Cardiac Risk Factors: FHX of CAD Stress Test Details Test: Bruno, Exercise stress testing was performed using a modified Bruno protocol. HR Resting HR: 89 bpm Max Heart Rate (APMHR): 197 bpm Max HR Achieved: 191 bpm Target HR (85% APMHR): 167 bpm % of APMHR: 97 Recovery HR: 120 bpm BP Resting BP: 132/75 mmHg Max BP: 168/84 mmHg Recovery BP: 168.0/84.0 mmHg ECG Resting ECG: NSR, J-POINT ELEVATION INFERIORLY Clinical Reason for Termination: Leg Pain Exercise duration: 09:00 min Highest Stage Achieved: Exercise capacity: 10.1 METs Stress ECG Conclusion NO CP. 2 PVC'S NOTED IN STAGE I. <1.[address] SEGMENT CHANGES. Normal exercise treadmill stress test Test Summary REST . . . . . . . Standing REST . . . . . . . Sitting REST 05:19 0.0 1.2 89 . 132/ 75 . . Stage 1 01:00 10.0 1.7 117 . . . . Stage 1 02:00 10.0 1.7 128 . . . . Stage 1 03:00 10.0 1.7 124 . 140/ 80 . . Stage 2 01:00 12.0 2.5 144 . . . . Stage 2 02:00 12.0 2.5 153 . . . . Stage 2 03:00 12.0 2.5 162 . 145/ 75 . . Stage 3 01:00 14.0 3.4 181 . . . . Stage 3 02:00 14.0 3.4 186 . . . . Stage 3 03:00 14.0 3.4 191 . 150/ 75 . Stop exercise at 09:00 RECOVERY 01:00 0.0 0.0 168 . . . . RECOVERY 02:00 0.0 0.0 144 . 160/ 85 . . RECOVERY 03:00 0.0 0.0 129 . 160/ 85 . . RECOVERY 04:00 0.0 0.0 124 . 160/ 85 . . RECOVERY 04:34 0.0 0.0 124 . 168/ 84 . . Electronically signed by : Skip Patton MD 09/24/2021 12:16:10
== END ==
PROVIDERS: PCP Family Medicine; Visit Provider Nurse Practitioner Family
DX: R07.9 Chest pain, unspecified (principal); R55 Syncope and collapse; R51.9 Headache, unspecified
CPT/HCPCS: 93017; 93306

== ENCOUNTER 2022-03-14 04:44 | Emergency (ER) | payer OTHER, SELFPAY ==
[2022-03-14 04:56] VITALS: BP 142/81; PULSE 76; RESP 16; TEMP 36.6; O2SAT 97
--- NOTE | 2022-03-14 05:03 | HMH.EDDENT ---
Discharge Plan Disposition Patient Disposition: Home, Self-Care Chief Complaint: Dental/Oral Prescriptions Prescriptions: No Action No Known Home Medications Referrals Follow up/Referrals: Desiree Haley MD [Primary Care Provider] - See instructions Clinical Impressions Clinical Impression: Pain, dental Instructions Patient Instructions: DI for Dental Pain Discharge ED Provider: Prudencio Araya Dental HPI General Chief complaint: Dental/Oral Stated complaint: toothache Time Seen by Provider: 03/14/22 05:03 Mode of Arrival: Ambulatory Source of Information: Patient and Medical Record Limitations: No Limitations Description of Symptoms (Recalled from ER Triage Doc. by RN): Pt c/o left upper sided tooth pain in the back of his mouth that has been going on since last night. States the pain radiates into his left ear and is a throbbing feeling. Pt also c/o back pain with inspiration that began 30 minutes ago. Denies injury. Pain is not severe. Pt states that he took an antibiotic (clarithromycin) that belongs to his grandmother to attempt to ease the pain. History of Present Illness HPI Narrative: lt upper dental pain MD Complaint: tooth pain 1. Onset (ago): hour(s) Duration: intermittent Severity: moderate Context: history of dental caries Treatment prior to arrival: oral analgesic Related Data Home Medications Medication Instructions Recorded Confirmed No Known Home Medications 03/14/22 03/14/22 Allergies Allergy/AdvReac Type Severity Reaction Status Date / Time No Known Allergies Allergy Verified 10/20/21 09:18 [facility] 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 (Updated 03/14/22 @ 05:16 by Prudencio Araya MD) Abnormal electrocardiography Syncope Social History Smoking Status: Never smoker alcohol intake: never substance use type: denies use current occupational status: other Travel in the last 8 weeks: [place] the [place] Odor Resistant Bedding ROS Obtained: Yes All systems reviewed & no additional complaints except as documented Physical Exam General General appearance: alert Head Head exam: normocephalic Eye Eye exam: Present PERRL and EOMI ENT ENT exam: Present mucous membranes moist Expanded ENT Exam Mouth exam: Absent drooling or lip swelling Teeth exam: Present dental caries, dental tenderness # and gingival swelling Neck Neck exam: Present trachea midline Respiratory Respiratory exam: Absent respiratory distress Cardiovascular Cardiovascular exam: Present regular rate Abdominal Exam Abdominal exam: Present soft Extremities Exam Extremities exam: Absent full ROM Neurological Exam Neurological exam: Present alert Psychiatric Psychiatric exam: Present normal affect Skin Skin exam: Absent rash Medical Decision Making Medical Records Medical records reviewed: Yes I reviewed the patient's medical records. Enrique Inquiry Pt receiving controlled substance: No Vital Signs: 03/14/22 04:56 Temperature 98 F Temperature Source Oral Pulse Rate [Apical] 76 Respiratory Rate 16 Blood Pressure [Right Arm] 142/81 H Blood Pressure Mean [Right Arm] 101 Blood Pressure Source [Right Arm] Automatic Cuff Blood Pressure Position [Right Arm] Sitting 02 Sat by Pulse Oximetry 97 Oxygen Delivery Method Room Air Orders (Tests/Meds): ED MEDICATIONS Discontinued Medications Generic Name Dose Route Start Last Admin Trade Name Freq PRN Reason Stop Dose Admin Benzocaine/Butamben/Tetracaine HCl 1 gm 03/14/22 05:05 03/14/22 05:10 Tetracaine/Benzocaine/Butamben 56 Gm [place] TP 03/14/22 05:06 1 gm ONCE ONE Administration Lidocaine HCl 15 ml 03/14/22 05:05 03/14/22 05:10 Lidocaine 2% Viscous Queta 15ml Udc PO 03/14/22 05:06 15 ml ONCE ONE Administration ORDERS Category Date Time Status XR chest 2V Stat Exams 03/14/22 05:10 Stop Req Medical Decision Narrative: please call dentist today Critical Care Time Critical Care Time Critical Care Time
[2022-03-14 05:24] VITALS: BP 142/81; PULSE 75; RESP 16; TEMP 36.6; O2SAT 99
== END 2022-03-14 05:27 | disposition home or self-care (01) ==
PROVIDERS: Emergency Provider Emergency Medicine; PCP Family Medicine
DX: K04.7 Periapical abscess without sinus (principal)
CPT/HCPCS: 99282

== ENCOUNTER 2022-06-01 09:24 | Emergency (ER) | payer OTHER, SELFPAY ==
[2022-06-01 10:15] VITALS: BP 142/86; PULSE 89; RESP 18; TEMP 36.9; O2SAT 98; BMI 33.9
--- NOTE | 2022-06-01 10:34 | EXP.UTC ---
Discharge Plan Disposition Patient Disposition: Home, Self-Care Condition: Good Prescriptions Prescriptions: New azithromycin [Zithromax Z-Tong] 250 mg tablet See Rx Instructions .ROUTE .COMPLEX 5 Days Qty: 6 0RF Rx Instructions: For 250 mg dose pack: take 500 mg today (day 1), then 250 mg for 4 days (days 2-5) methylprednisolone [Medrol (Tong)] 4 mg tablets,dose pack See Rx Instructions .Route .COMPLEX 6 Days Qty: 21 0RF Rx Instructions: taper pack; [id number] [Bromfed DM] 2-30-10 mg/5 mL Syrup 10 ml PO Q4H PRN (Reason: Cough) Qty: 240 0RF Referrals Follow up/Referrals: Desiree Haley MD [Primary Care Provider] - See instructions Activity Restrictions/Add. Instructions Additional Instructions/Restrictions: *Monitor Temp, Over the counter Motrin or Tylenol as directed/as needed Tylenol every 4 hours and Motrin every 6 hours (as long as your family doctor has told you that you can take it) for fever or pain. and straight to ER if unable to lower temp less than 101.0 after medication given *Warm salt water gargles may help to soothe the throat *Throat Lozenges? *Warm fluids like tea with honey may help to soothe the throat? *Sleep elevated *Humidifier/Vaporizer *Flonase 2 sprays in each nostril daily but be aware that it may take 2-3 days before you notice improvement *Bromfed may cause drowsiness. Know how it effects you (your child) before driving, caring for small child, or sending your child to school. Not other antihistamines/allergy medications while taking bromfed Your throat swab was sent for culture. Those results are typically sent to your primary care. Be sure to follow up in 2-3 days with your family doctor/primary care physician if no improvement so they can review those result and treat if necessary. If you don?t have a primary care doctor, I recommend you get one but in the mean time, you will have to return to a walk in clinic Follow up IMMEDIATELY for new or worsening symptoms or no Noticeable improvement over the next 48-72 hours. 911 for difficulty breathing or swallowing Clinical Impressions Clinical Impression: Sinusitis Instructions Patient Instructions: DI for Sinusitis, Sinusitis Discharge ED [place] [facility] [place] General Stated complaint: Sneezing, sore throat, drainage, congestion Mode of Arrival: Ambulatory Source of Information: Patient Limitations: No Limitations Time Seen by Provider: 06/01/22 10:35 Description of Symptoms (Recalled from Triage Doc. by RN): PATIENT C/O SINUS CONGESTION, RUNNY NOSE AND SNEEZING X 3 DAYS HEENT Symptoms (Recalled from RN notes): Yes Resp Symptoms (Recalled from RN notes): No Skin Symptoms (Recalled from RN notes): No MS Symptoms (Recalled from RN notes): No Functional Status (Recalled from RN notes): WNL History of Present Illness Provider Complaint: Patient states that he has been having sinus congestion and pressure, drainage in the back of his throat and sneezing that has got worse over the last couple of days State that today was worse and his mucous was getting more thicker Related Data Previous Rx's Medication Instructions Recorded azithromycin 250 mg tablet See Rx Instructions PO .COMPLEX 5 06/01/22 (Zithromax Z-Tong) days #6 tabs [id number]-QG 10 ml PO Q4H PRN Cough #240 mL 06/01/22 2 mg-30 mg-10 mg/5 mL oral syrup (Bromfed DM) methylprednisolone 4 mg tablets in See Rx Instructions .Route 06/01/22 a dose pack (Medrol (Tong)) .COMPLEX 6 days #21 tabs Allergies Allergy/AdvReac Type Severity Reaction Status Date / Time No Known Allergies Allergy Verified 10/20/21 09:18 Worker's Comp Is this a Worker's Comp case?: No [facility] 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 (Updated 06/01/22 @ 10:49 by Leisa Wilks APRN) Abnormal electrocardiography Anxiety Syncope Social History Smoking Status: Never smoker alcohol intake: never substance use ty
[2022-06-01 10:41] VITALS: BP 142/86; PULSE 89; RESP 18; TEMP 36.9; O2SAT 98
== END 2022-06-01 11:01 | disposition home or self-care (01) ==
PROVIDERS: Emergency Provider Nurse Practitioner; PCP Family Medicine
DX: J32.9 Chronic sinusitis, unspecified (principal)
CPT/HCPCS: 99212; G0463

== ENCOUNTER 2024-09-28 16:09 | Emergency (ER) | payer BC, SELFPAY ==
[2024-09-28 16:17] VITALS: BP 160/95; PULSE 80; RESP 18; TEMP 36.7; O2SAT 98; BMI 39.6
--- NOTE | 2024-09-28 16:18 | HMH.EDGENADL ---
Discharge Plan Disposition Patient Disposition: Home, Self-Care Prescriptions Prescriptions: No Action No Known Home Medications Referrals Follow up/Referrals: Desiree Haley MD [Primary Care Provider] - See instructions Activity Restrictions/Add. Instructions Additional Instructions/Restrictions: Follow-up with your primary care doctor. Ask your primary care doctor about checking your thyroid levels in the future. Please return the emerged part with any new, concerning, worsening symptoms. Clinical Impressions Clinical Impression: Sensation of feeling cold Print Language Print Language: Macedonian Discharge ED Provider: Odilon Chavez General Adult HPI General Stated complaint: Fever Time Seen by Provider: 09/28/24 16:12 Mode of Arrival: Ambulatory Source of Information: Patient Limitations: No Limitations History of Present Illness HPI narrative: This is a 24-year-old male with no significant past medical history who presents with a sensation of feeling cold. States that this has happened a few times in the past where he notes that it is hot outside however he feels cold. Denies any other associated symptoms such as headache, cough, congestion, sore throat, abdominal pain, nausea/vomiting/diarrhea, shortness of breath, chest pain. Has a primary care doctor. States that he went to urgent treatment center who recommended that he follow-up with his primary care doctor about getting his thyroid levels checked. Related Data Home Medications ?Medication ?Instructions ?Recorded ?Confirmed No Known Home Medications 09/28/24 09/28/24 Allergies Allergy/AdvReac Type Severity Reaction Status Date / Time No Known Allergies Allergy Verified 09/28/24 15:35 PFSH [facility] Disclaimer: The information contained in this section may have been updated after the patient was seen, as this information can be updated by other users. 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) Smoking Status: Never smoker alcohol intake: never substance use type: denies use current occupational status: other Travel in the last 8 weeks: [place] the [place] Have you lived/traveled outside [place] in past 30 days?: No Contact w/someone who lives/traveled outside [place] past 30 days?: No Exposure to someone with infectious disease in past 14 days?: No Do you have a fever (greater than 100.4 F or 38 C)?: Yes Have you tested positive for COVID-19: No Exposed to someone with COVID-19 in past 14 days?: No Do you have a sore throat?: No Do you have a cough?: No Do you have any weakness?: No Do you have any diarrhea?: No Are you experiencing any unusual bleeding?: No Do you have any muscle aches/pain?: No Do you have any abdominal pain?: No Are you experiencing loss of taste or smell?: No Other 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 Have you received the Flu Vaccine for this season: No Have you received the Pneumonia Vaccine: No ROS Obtained: Yes All systems reviewed & no additional complaints except as documented Physical Exam General General appearance: alert and in no apparent distress Eye Eye exam: Present normal appearance, PERRL and EOMI Respiratory Respiratory exam: Present normal lung sounds bilaterally; Absent respiratory distress Cardiovascular Cardiovascular exam: Present regular rate and normal rhythm Abdominal Exam Abdominal exam: Present soft and distention; Absent tenderness, guarding or rebound Extremities Exam Extremities exam: Present normal inspection Neurological Exam Neurological exam: Present alert and oriented X3 Skin Skin exam: Present warm and dry Medical Decision Making Medical Records Medical records reviewed: Yes I reviewed the patient's medical records. Screening: Per USPSTF and CDC recommendations, given the prevalence of disease in our region, it is our hospital?s policy to screen for HIV and viral Hepatitis for all patients aged 18 and over and those with ongoing risk factors. Enrique Inquiry Pt receiving controlled substance: No Medical Decision Narrative: In summary, this otherwise healthy 24-year-old male presents to the emergency department today with sensation of low body temperature. On initial evaluation patient is mildly hypertensive with SBP 160, heart rate of 80, normal body temperature at 98.1. Otherwise very well-appearing and asymptomatic. Differential diagnosis includes but is not limited to hypothyroidism, anxiousness, environmental exposure. Patient was very well-appearing and asymptomatic with a normal body temperature at this time. Reassured patient and suggested he follow-up with his primary care doctor. Cavalier considering checking thyroid function panel in the future. Also recommended following up blood pressure as he was hypertensive today. Critical Care Critical Care Time Critical Care Time: No
[2024-09-28 16:24] VITALS: BP 160/95; PULSE 75; RESP 15; TEMP 36.7; O2SAT 96
== END 2024-09-28 16:25 | disposition home or self-care (01) ==
PROVIDERS: Emergency Provider Student in an Organized Health Care Education/Training Program; PCP Family Medicine
DX: R20.8 Other disturbances of skin sensation (principal); F41.9 Anxiety disorder, unspecified; R03.0 Elevated blood-pressure reading, without diagnosis of hypertension; R50.9 Fever, unspecified
CPT/HCPCS: 99281